=== PATIENT | male | born 1940 | race African-American/Black ===

== ENCOUNTER 2017-03-07 18:42 | Inpatient (IN) | payer MEDICARE, MEDICAID ==
[~2017-03-07] VITALS: Ht 182.9 cm; Wt 62.3 kg
[~2017-03-07 18:42] MED LIST: ASPI-1158 PO; BENA40TA3 PO; CARV6.2548 PO; DUTA0.5C2 PO; METF500T4 PO; MULT-1116 PO; OMEP20CA10 PO; SIMV20TA6 PO; TAMS0.4C31 PO
[2017-03-07 19:37] LABS: HEMATOCRIT. 42.7 % (42.0-52.0); HEMOGLOBIN. 13.7 g/dL (14.0-18.0); MEAN CORPUSCULAR HEMOGLOBIN 27.5 pg (28.0-32.0); MEAN CORPUSCULAR VOLUME 85.9 fL (80.0-94.0); MEAN PLATELET VOLUME 10.1 fl (7.4-10.4); PLATELET 96 x1000/uL (130-400); RED BLOOD CELL COUNT 4.97 mill/uL (4.7-6.1); RED CELL DISTRIBUTION WIDTH 18.6 % (11.6-14.6)
[2017-03-07 19:43] LABS: INR 1.4; PROTHROMBIN TIME 14.2 sec (9.4-11.6)
[2017-03-07 19:53] LABS: CARBON DIOXIDE 27 mEq/L (21-32); CHLORIDE 107 mEq/L (98-107); TROPONIN I 0.11 ng/mL (0.00-0.04)
[2017-03-07 20:13] LABS: PLATELET ESTIMATE DECREASED
[2017-03-07] MEDS ORDERED: SODIUM CHLORIDE 0.9% 1,000 ML IV ONE (20:30)
[2017-03-07] MEDS ORDERED: ASPIRIN 81MG TABLET PO ONE (20:30)
[2017-03-07] MEDS ORDERED: SODIUM CHLORIDE 0.9% 1,000 ML IV SCH (20:53)
[2017-03-07 21:13] LABS: BG CARBOXYHEMOGLOBIN 0.8 % (0.5-1.5); BG DEOXYHEMOGLOBIN 3.9 % (0.0-5.0); BG FRACTION INSPIRED OXYGEN 21; BG HCO3 ACT 23.8 mmol/L (22.0-26.0); BG METHEMOGLOBIN 0.3 % (0.0-1.5); BG OXYGEN SATURATION 96.1 % (92.0-98.5); BG PCO2 32.7 mmHg (35.0-45.0); BG PO2 80.3 mmHg (75.0-100.0); BG SAMPLE SITE LEFT BRACHIAL; BG TOTAL HEMOGLOBIN 13.6 g/dL (12.0-18.0); BG VENT MODE ROOM AIR
[2017-03-07] MEDS ORDERED: ENOXAPARIN 80MG/0.8ML SYR SUBCUT ONE (21:15)
[2017-03-07] MEDS ORDERED: ACETAMINOPHEN 325MG TABLET PO PRN (22:30)
[2017-03-07] MEDS ORDERED: DOCUSATE SODIUM 100MG CAPSULE PO PRN (22:30)
[2017-03-07] MEDS ORDERED: DIPHENHYDRAMINE 50MG/ML VIAL IV PRN (22:30)
[2017-03-07] MEDS ORDERED: ENOXAPARIN 40MG/0.4ML SYR SUBCUT SCH (22:30)
[2017-03-07] MEDS ORDERED: NITROGLYCERIN 0.4MG TABLET SL SL PRN (22:30)
[2017-03-07] MEDS ORDERED: TRAMADOL 50MG TABLET PO PRN (22:30)
[2017-03-07] MEDS ORDERED: MORPHINE SULFATE 4 MG/ML CPJ (NOT FOR IM USE) IV PRN (22:30)
[2017-03-07] MEDS ORDERED: LORAZEPAM 2MG/ML CPJ IV PRN (22:30)
[2017-03-07] MEDS ORDERED: GUAIFENESIN 200MG/10ML SUGAR FREE UDC PO PRN (22:30)
[2017-03-07] MEDS ORDERED: IPRATROPIUM/ALBUTEROL 0.5-3(2.5)MG/3ML NEB INH PRN (22:30)
[2017-03-07] MEDS ORDERED: CLONIDINE 0.1MG TABLET PO PRN (22:30)
[2017-03-07] MEDS ORDERED: NA PHOS,M-B/NA PHOS,DI-BA ENEMA 118ML PR PRN (22:30)
[2017-03-07] MEDS ORDERED: MAGNESIUM/ALUMINUM HYDROXIDE/SIMETHICONE 30ML UDC PO PRN (22:30)
[2017-03-07] MEDS ORDERED: ONDANSETRON HCL 4MG/2ML VIAL IV PRN (22:30)
[2017-03-07 23:36] LABS: T4 FREE 1.31 ng/dL (0.76-1.46)
[2017-03-07] MEDS ORDERED: ZOLPIDEM TARTRATE 5MG TABLET PO PRN (23:47)
[2017-03-08] VITALS (13 sets, daily range): BP systolic 110–142; BP diastolic 57–87
[2017-03-08] MEDS ORDERED: DEXTROSE 50% WATER 50ML SYRINGE IV PRN
[2017-03-08 00:15] LABS: FOLIC ACID (FOLATE) SERUM 4.1 ng/mL (>5.38)
[2017-03-08] MEDS ORDERED: LEVOFLOXACIN 500MG PREMIX 100 ML IV SCH (01:00)
[2017-03-08] MEDS: CEFTRIAXONE 1 G PREMIX 50 ML IV SCH (02:13)
[2017-03-08 06:51] LABS: TROPONIN I 0.07 ng/mL (0.00-0.04)
[2017-03-08 07:02] LABS: CREATINE KINASE MB FRACTION 0.5 ng/mL (0.5-3.6)
[2017-03-08 07:56] LABS: BASOPHILS % 0.1 % (0.0-2.0); EOSINOPHILS % 1.2 % (0.0-5.0); HEMATOCRIT. 39.2 % (42.0-52.0); HEMOGLOBIN. 12.7 g/dL (14.0-18.0); LYMPHOCYTES % 4.1 % (20.0-50.0); MEAN CORPUSCULAR HEMOGLOBIN 27.6 pg (28.0-32.0); MEAN CORPUSCULAR VOLUME 84.9 fL (80.0-94.0); MONOCYTES % 5.1 % (2.0-8.0); NEUTROPHILS % 89.5 % (40.0-76.0); PLATELET 88 x1000/uL (130-400); RED BLOOD CELL COUNT 4.62 mill/uL (4.7-6.1); RED CELL DISTRIBUTION WIDTH 18.9 % (11.6-14.6)
[2017-03-08] MEDS: INSULIN LISPRO 100 UNITS/ML SUBCUT SCH ×4 (07:57→20:52)
[2017-03-08] MEDS: BLOOD SUGAR DIAGNOSTIC STRIP TEST SCH ×4 (07:57→20:52)
[2017-03-08 08:11] LABS: CARBON DIOXIDE 25 mEq/L (21-32); CHLORIDE 108 mEq/L (98-107)
[2017-03-08] MEDS: TAMSULOSIN HCL 0.4MG SR CAPSULE PO SCH (09:30)
[2017-03-08] MEDS: FUROSEMIDE 40MG/4ML VIAL IVP SCH ×2 (09:31→21:23)
[2017-03-08] MEDS ORDERED: LACTULOSE 20G/30ML UDC PO NR (11:30)
[2017-03-08] MEDS: ASPIRIN 325MG EC TABLET PO SCH (11:33)
[2017-03-08] MEDS: ENOXAPARIN 30MG/0.3ML SYR SUBCUT SCH (11:33)
[2017-03-08 15:25] LABS: CLARITY URINE CLEAR (CLEAR); COLOR URINE YELLOW (YELLOW); GLUCOSE URINE NEGATIVE (NEGATIVE); KETONES URINE NEGATIVE (NEGATIVE); LEUKOCYTE ESTERASE URINE 2+ (NEGATIVE); NITRITE URINE NEGATIVE (NEGATIVE); OCCULT BLOOD URINE TRACE (NEGATIVE); PH URINE 5.5 (4.5-8.0); PROTEIN URINE NEGATIVE (NEGATIVE); SPECIFIC GRAVITY URINE 1.009 (1.005-1.030); UROBILINOGEN URINE 0.2 E.U./dL (0.2-1.0)
[2017-03-08 15:40] LABS: *AMPHETAMINES SCREEN URINE NEGATIVE (NEGATIVE); *BARBITURATES SCREEN URINE NEGATIVE (NEGATIVE); *BENZODIAZEPINES SCREEN URINE NEGATIVE (NEGATIVE); *COCAINE SCREEN URINE NEGATIVE (NEGATIVE); CANNABINOID URINE SCREEN NEGATIVE (NEGATIVE); METHADONE URINE SCREEN NEGATIVE (NEGATIVE); OPIATES URINE SCREEN NEGATIVE (NEGATIVE); PHENCYCLIDINE URINE SCREEN NEGATIVE (NEGATIVE)
[2017-03-08 16:19] LABS: TROPONIN I 0.03 ng/mL (0.00-0.04)
[2017-03-08 16:20] LABS: CREATINE KINASE MB FRACTION < 0.5 ng/mL (0.5-3.6)
[2017-03-08] MEDS ORDERED: POTASSIUM CHLORIDE 20MEQ TABLET SR PO NR (20:45)
[2017-03-08] MEDS ORDERED: MAGNESIUM 2 G PREMIX 50 ML IV NR (22:00)
[2017-03-08] MEDS ORDERED: POTASSIUM CHLORIDE INJ 40 MEQ in DEXT 5% WATER 250 ML IV NR (22:00)
[2017-03-09] VITALS (13 sets, daily range): BP systolic 86–153; BP diastolic 57–88
[2017-03-09] MEDS: LEVOFLOXACIN 250MG PREMIX 50 ML IV SCH (00:37)
[2017-03-09] MEDS: CEFTRIAXONE 1 G PREMIX 50 ML IV SCH (01:56)
[2017-03-09 05:59] LABS: HEMOGLOBIN 12.5 g/dL (14.0-18.0); MEAN CORPUSCULAR HEMOGLOBIN 27.7 pg (28.0-32.0); MEAN CORPUSCULAR VOLUME 84.5 fL (80.0-94.0); PLATELET 110 x1000/uL (130-400); RED BLOOD CELL COUNT 4.49 mill/uL (4.7-6.1)
[2017-03-09] MEDS: BLOOD SUGAR DIAGNOSTIC STRIP TEST SCH ×4 (07:30→21:13)
[2017-03-09] MEDS: INSULIN LISPRO 100 UNITS/ML SUBCUT SCH ×4 (08:00→21:16)
[2017-03-09] MEDS: TAMSULOSIN HCL 0.4MG SR CAPSULE PO SCH (09:52)
[2017-03-09] MEDS: ENOXAPARIN 30MG/0.3ML SYR SUBCUT SCH (09:53)
[2017-03-09] MEDS: FUROSEMIDE 40MG/4ML VIAL IVP SCH ×2 (09:53→21:13)
[2017-03-09] MEDS: ASPIRIN 325MG EC TABLET PO SCH (09:53)
[2017-03-09] MEDS ORDERED: POTASSIUM CHLORIDE 20MEQ TABLET SR PO NR (12:00)
[2017-03-09] MEDS ORDERED: POTASSIUM CHLORIDE INJ 40 MEQ in DEXT 5% WATER 250 ML IV NR (13:30)
[2017-03-09] MEDS ORDERED: DIATR MEGLU/DIATRIZOATE SOLN 30ML PO SCH (15:15)
[2017-03-10] VITALS (15 sets, daily range): BP systolic 99–145; BP diastolic 25–84
[2017-03-10] MEDS: LEVOFLOXACIN 250MG PREMIX 50 ML IV SCH (01:05)
[2017-03-10] MEDS: CEFTRIAXONE 1 G PREMIX 50 ML IV SCH (03:46)
[2017-03-10 06:40] LABS: HEMATOCRIT. 36.9 % (42.0-52.0); HEMOGLOBIN. 12.2 g/dL (14.0-18.0); MEAN CORPUSCULAR HEMOGLOBIN 27.9 pg (28.0-32.0); MEAN CORPUSCULAR VOLUME 84.4 fL (80.0-94.0); RED BLOOD CELL COUNT 4.37 mill/uL (4.7-6.1); RED CELL DISTRIBUTION WIDTH 18.4 % (11.6-14.6)
[2017-03-10] MEDS: BLOOD SUGAR DIAGNOSTIC STRIP TEST SCH ×4 (07:30→20:53)
[2017-03-10] MEDS: INSULIN LISPRO 100 UNITS/ML SUBCUT SCH ×4 (08:00→20:53)
[2017-03-10] MEDS: FUROSEMIDE 40MG/4ML VIAL IVP SCH ×2 (08:20→20:53)
[2017-03-10] MEDS: ASPIRIN 325MG EC TABLET PO SCH (08:20)
[2017-03-10] MEDS: TAMSULOSIN HCL 0.4MG SR CAPSULE PO SCH (08:20)
[2017-03-10] MEDS: ENOXAPARIN 30MG/0.3ML SYR SUBCUT SCH (08:22)
[2017-03-10] MEDS ORDERED: POTASSIUM CHLORIDE INJ 40 MEQ in DEXT 5% WATER 250 ML IV SCH (09:00)
[2017-03-10] MEDS ORDERED: POTASSIUM CHLORIDE 20MEQ TABLET SR PO SCH (09:00)
[2017-03-11] VITALS (10 sets, daily range): BP systolic 95–114; BP diastolic 48–75
[2017-03-11] MEDS: LEVOFLOXACIN 250MG PREMIX 50 ML IV SCH (01:40)
[2017-03-11] MEDS: CEFTRIAXONE 1 G PREMIX 50 ML IV SCH (02:56)
[2017-03-11] MEDS: INSULIN LISPRO 100 UNITS/ML SUBCUT SCH ×4 (08:00→21:06)
[2017-03-11] MEDS: BLOOD SUGAR DIAGNOSTIC STRIP TEST SCH ×4 (08:01→21:06)
[2017-03-11] MEDS: ASPIRIN 325MG EC TABLET PO SCH (08:01)
[2017-03-11] MEDS: FUROSEMIDE 40MG/4ML VIAL IVP SCH ×2 (08:02→21:06)
[2017-03-11] MEDS: ENOXAPARIN 30MG/0.3ML SYR SUBCUT SCH (08:02)
[2017-03-11] MEDS: TAMSULOSIN HCL 0.4MG SR CAPSULE PO SCH (08:02)
[2017-03-11 11:24] LABS: CARBON DIOXIDE 24 mEq/L (21-32); CHLORIDE 102 mEq/L (98-107)
[2017-03-11] MEDS ORDERED: POTASSIUM CHLORIDE 20MEQ TABLET SR PO SCH (12:00)
[2017-03-12] VITALS (9 sets, daily range): BP systolic 95–128; BP diastolic 50–65
[2017-03-12] MEDS: LEVOFLOXACIN 250MG PREMIX 50 ML IV SCH (01:08)
[2017-03-12] MEDS: CEFTRIAXONE 1 G PREMIX 50 ML IV SCH (02:51)
[2017-03-12] MEDS: BLOOD SUGAR DIAGNOSTIC STRIP TEST SCH ×2 (07:52→12:55)
[2017-03-12] MEDS: INSULIN LISPRO 100 UNITS/ML SUBCUT SCH ×2 (07:52→12:55)
[2017-03-12] MEDS: FUROSEMIDE 40MG/4ML VIAL IVP SCH (08:31)
[2017-03-12] MEDS: ENOXAPARIN 30MG/0.3ML SYR SUBCUT SCH (08:31)
[2017-03-12] MEDS: TAMSULOSIN HCL 0.4MG SR CAPSULE PO SCH (08:31)
[2017-03-12] MEDS: ASPIRIN 325MG EC TABLET PO SCH (08:31)
[2017-03-12 09:23] LABS: CARBON DIOXIDE 28 mEq/L (21-32); CHLORIDE 102 mEq/L (98-107); TROPONIN I < 0.02 ng/mL (0.00-0.04)
[2017-03-12 09:25] LABS: HEMATOCRIT. 39.2 % (42.0-52.0); HEMOGLOBIN. 12.7 g/dL (14.0-18.0); MEAN CORPUSCULAR HEMOGLOBIN 27.9 pg (28.0-32.0); MEAN CORPUSCULAR VOLUME 86.6 fL (80.0-94.0); RED BLOOD CELL COUNT 4.53 mill/uL (4.7-6.1)
[2017-03-12 11:29] LABS: PLATELET ESTIMATE NORMAL
[2017-03-12 11:30] LABS: MEAN PLATELET VOLUME 10.3 fl (7.4-10.4); PLATELET 160 x1000/uL (130-400)
[2017-03-13] MEDS ORDERED: LEVOFLOXACIN 250MG TABLET PO SCH (11:00)
== END 2017-03-12 16:55 | disposition home health service (06) | DRG 871 ==
LOC: ER 18:42 → 5EST 20:56 → ENRESERV 22:05 → SUPCPDRO 22:14 → EDBEDREQ 23:40
PROVIDERS: ADMIT Internal Medicine; ATTEND Internal Medicine
DX: A41.51 Sepsis due to Escherichia coli [E. coli] (principal); I50.43 Acute on chronic combined systolic (congestive) and diastolic (congestive) heart failure; J96.00 Acute respiratory failure, unspecified whether with hypoxia or hypercapnia; N17.9 Acute kidney failure, unspecified; E44.0 Moderate protein-calorie malnutrition; E87.2 Acidosis; E11.22 Type 2 diabetes mellitus with diabetic chronic kidney disease; I49.5 Sick sinus syndrome; I13.0 Hypertensive heart and chronic kidney disease with heart failure and stage 1 through stage 4 chronic kidney disease, or unspecified chronic kidney disease; Z68.1 Body mass index [BMI] 19.9 or less, adult; E78.00 Pure hypercholesterolemia, unspecified; E78.5 Hyperlipidemia, unspecified; E87.6 Hypokalemia; I25.10 Atherosclerotic heart disease of native coronary artery without angina pectoris; I25.5 Ischemic cardiomyopathy; E11.51 Type 2 diabetes mellitus with diabetic peripheral angiopathy without gangrene; J44.9 Chronic obstructive pulmonary disease, unspecified; N18.9 Chronic kidney disease, unspecified; N21.0 Calculus in bladder; N40.0 Benign prostatic hyperplasia without lower urinary tract symptoms; Z79.4 Long term (current) use of insulin; Z85.118 Personal history of other malignant neoplasm of bronchus and lung; I25.2 Old myocardial infarction; Z95.810 Presence of automatic (implantable) cardiac defibrillator; Z79.84 Long term (current) use of oral hypoglycemic drugs; Z79.899 Other long term (current) drug therapy
CPT/HCPCS: 36415; 36600; 71010; 74176; 76770; 80048; 80053; 80061; 80305; 81001; 82375; 82553; 82607; 82746; 82805; 82962; 83036; 83540; 83550; 83605; 83735; 83880; 84132; 84439; 84443; 84484; 85025; 85027; 85610; 87040; 87077; 87186; 87493; 93005; 93306; 93970; 96360; 96372; 97116; 97162; 99291; C1893; J0696; J1650; J1815; J1940; J1956; J3475; J3480; J7030; J7040; J7050; J7060; Q9963